=== PATIENT | female | born 1945 | race Two or more races ===

== ENCOUNTER 2018-06-28 04:58 | Emergency (ER) | payer MEDICARE, BC ==
[~2018-06-28] VITALS: Ht 167.6 cm; Wt 57.0 kg
[2018-06-28 05:13] VITALS: BP 136/58; PULSE 73; RESP 18; Ht 167.6 cm; Wt 57.0 kg
[2018-06-28] MEDS ORDERED: KETOROLAC 60 MG INJ IM STA (06:22)
[2018-06-28] MEDS ORDERED: DEXAMETHASONE 10 MG/ML 1 ML INJ IM ONE (06:30)
[2018-06-28] MEDS ORDERED: CYCL10TA7 PO (07:00)
[2018-06-28] MEDS ORDERED: TRAM50TA2 PO (07:00)
[2018-06-28] MEDS ORDERED: NAPR-985 PO (07:00)
[2018-06-28] MEDS ORDERED: MED4DP PO (07:00)
--- NOTE | 2018-06-28 07:20 | ERD ---
ER Documentation Chief Complaint Chief Complaint lower back pain radiating to left leg x 4 days. denies trauma HPI 72-year-old female presenting with lower back pain to the left side that r adiates down the left lateral leg. She states is been going in the last 4 days. She was seen yesterday at [facility] [place] and had x-rays done of her lower spine with normal results. She has an MRI scheduled in 2 days. She was given cortisone shot into the affected site yesterday with no alleviation is taking Advil with no relief. Patient denies any numbness or tingling and denies any recent falls. Patient denies weakness. Denies fever. Normal urination bowel movement. Denies any other medical problems. NKDA. Surgical history foot and ankle. Social history denies ROS All systems reviewed and are negative except as per history of present illness. Medications Home Meds Active Scripts Cyclobenzaprine Hcl* (Cyclobenzaprine Hcl*) 10 Mg Tablet, 10 MG PO TID, #15 TAB Prov:KRISTIAN JUSTIN PA-C 06/28/18 Naproxen* (Naprosyn*) 500 Mg Tablet, 500 MG PO BID PRN for PAIN AND/OR INFLAMMATION, #30 TAB Prov:KRISTIAN JUSTIN PA-C 06/28/18 Tramadol HCl (Tramadol HCl) 50 Mg Tablet, 50 MG PO Q4 PRN for PAIN, #20 TAB Prov:KRISTIAN JUSTIN PA-C 06/28/18 Methylprednisolone* (Medrol* DOSE PACK) 4 Mg/Dose-Pack Tab.ds.pk, 4 MG PO . DIRECTED, #1 PACKET Prov:KRISTIAN JUSTIN PA-C 06/28/18 Allergies Allergies: Coded Allergies: No Known Drug Allergies (Verified Allergy, Unknown, 06/28/18) PMhx/Soc Medical and Surgical Hx: pt denies Medical Hx, pt denies Surgical Hx Hx Alcohol Use: No Hx Substance Use: No Hx Tobacco Use: No Smoking Status: Never smoker FmHx Family History: No diabetes, No coronary disease, No other Physical Exam Vitals Vital Signs Date Temp Pulse Resp B/P (MAP) Pulse Ox O2 O2 Flow FiO2 Time Delivery Rate 06/28/18 98.9 73 18 136/58 98 05:13 (84) Physical Exam GENERAL: The patient is well-appearing, well-nourished, in no acute distress CHEST: Clear to auscultation bilaterally. There are no rales, wheezes or rhonchi. HEART: Regular rate and rhythm. No murmurs, clicks, rubs or gallops. No S3 or S4. ABDOMEN:Soft, nontender and nondistended. Good bowel sounds. No rebound or guarding. No gross peritonitis. No gross organomegaly or masses. No Alford sign or McBurney point tenderness. BACK: No midline or flank tenderness. Tender to palpation down left buttock extending down left leg. EXTREMITIES: Strength 5 out of 5 with flexion and extension. No pain with internal or external range of motion. NEUROLOGIC: Alert and oriented. Cranial nerves II through XII intact. Motor strength in all 4 extremities with 5 out of 5 strength. Sensation grossly intact. Normal speech and gait. SKIN: There is no apparent rash or petechiae. The skin is warm and dry. Results 24 hrs Current Medications Medications Dose Sig/Gordo Start Time Status Last (Trade) Ordered Route PRN Stop Time Admin Dose Reason Admin 10 mg ONCE ONCE 06/28/18 DC 06/28/18 Dexamethasone IM 06:30 06:37 (Decadron) 06/28/18 06:31 Ketorolac 60 mg ONCE STAT 06/28/18 DC 06/28/18 Tromethamine IM 06:22 06:37 (Toradol) 06/28/18 06:23 Procedures/MDM ER course: Decadron and Toradol given in the ED. Patient is driving so no stronger pain medication medication is given. I originally ordered CT lumbar and x-ray of the hip however patient decided to refrain from imaging given she has an MRI scheduled in 2 days. MDM: 72-year-old female presenting with back pain and hip pain. Patient is discharged with pain medications. Patient is recommended to return to the ER if symptoms change or worsen. I believe patient's pain is likely associated with back pain with sciatica. I have low suspicion for acute fracture dislocation. I have low suspicion for cauda equina discitis or epidural abscess. Patient is discharged with strict ER precautions and told to follow-up with primary care within 1 to 2 days for close evaluation. All questions answered at discharge Departure Diagnosis: Primary Impression: Back pain Condition: Stable Patient Instructions: Back Pain W/ Sciatica Referrals: AKILAH QUILES MD (PCP) Additional Instructions: FOLLOW UP WITH YOUR PRIMARY CARE PHYSICIAN TOMORROW.Return to this facility if you are not improving as expected. KRISTIAN JUSTIN PA-C June 28, 2018 07:20
== END 2018-06-28 07:37 | disposition home or self-care (01) ==
LOC: FTE 04:58
DX: M54.5 Low back pain (principal)
CPT/HCPCS: 96372; 99284; J1100; J1885